=== PATIENT | male | born 1975 | race Caucasian/White ===

== ENCOUNTER 2023-01-31 21:05 | Emergency (ER) | payer MEDICARE ==
[~2023-01-31] VITALS: Ht 177.8 cm; Wt 111.6 kg
[2023-01-31 21:40] LABS: BASOPHILS ABSOLUTE AUTO 0.06 K/mm3 (0.00-0.23); BASOPHILS PERCENT AUTO 1 % (0-2); EOSINOPHILS ABSOLUTE AUTO 0.08 K/mm3 (0.00-0.68); EOSINOPHILS PERCENT AUTO 1 % (0-6); Hematocrit 38.2 % (37.0-53.0); Hemoglobin 12.4 g/dL (13.5-17.5); IMMATURE GRAN ABSOLUTE AUTO 0.07 K/mm3 (0.00-0.10); IMMATURE GRAN PERCENT AUTO 1 % (0-1); LYMPHOCYTES ABSOLUTE AUTO 1.19 K/mm3 (0.84-5.20); LYMPHOCYTES PERCENT AUTO 10 % (21-46); MONOCYTES ABSOLUTE AUTO 1.36 K/mm3 (0.16-1.47); MONOCYTES PERCENT AUTO 11 % (4-13); Mean Corpuscular HGB 28.6 pg (26.0-34.0); Mean Corpuscular HGB Conc 32.5 g/dL (31.5-36.5); Mean Corpuscular Volume 88 fL (80-100); Mean Platelet Volume 9.8 fL (9.1-12.4); NEUTROPHILS ABSOLUTE AUTO 9.35 K/mm3 (1.96-9.15); NEUTROPHILS PERCENT AUTO 77 % (41-73); Platelet Count 190 K/mm3 (150-400); RDW Coefficient Variation 16.2 % (11.7-14.2); RDW Standard Deviation 50.9 fL (35.1-46.3); Red Blood Cell Count 4.34 M/mm3 (4.30-5.90); White Blood Cell Count 12.11 K/mm3 (4.00-11.30)
[2023-01-31 21:53] LABS: Albumin, Blood 3.6 g/dL (3.4-5.0); Albumin/Globulin Ratio 0.9 (0.8-1.8); Bilirubin, Total 1.6 mg/dL (0.1-1.0); Bun/Creatinine Ratio 13.9 (12.0-20.0); Calcium, Blood 8.6 mg/dL (8.5-10.1); Creatinine, Blood 1.87 mg/dL (0.60-1.20); Globulin, Blood 4.2 g/dL (2.2-4.0); Potassium, Blood 2.8 mmol/L (3.5-5.5); Total Protein, Blood 7.8 g/dL (6.4-8.2)
[2023-02-01 00:23] LABS: Potassium, Blood 2.4 mmol/L (3.5-5.5)
[2023-02-01] MEDS ORDERED: ONDA4ODT MM (01:29)
[2023-02-01 04:45] VITALS: BP 116/68
== END 2023-02-01 04:53 | disposition home or self-care (01) ==
LOC: ER 21:05
PROVIDERS: Physician Assistant
DX: E87.6 Hypokalemia (principal)
CPT/HCPCS: 80053; 83735; 84132; 85025; 93005; 93010; 96365; 96366; 96375; 99285-25; A9270; J2405; J3480; J7030; J7050

== ENCOUNTER 2023-02-08 10:42 | Emergency (ER) | payer MEDICARE ==
[~2023-02-08] VITALS: Ht 177.8 cm; Wt 108.9 kg
[~2023-02-08 10:42] MED LIST: ONDA4ODT MM
[2023-02-08 12:22] LABS: BASOPHILS ABSOLUTE AUTO 0.07 K/mm3 (0.00-0.23); BASOPHILS PERCENT AUTO 1 % (0-2); EOSINOPHILS ABSOLUTE AUTO 0.14 K/mm3 (0.00-0.68); EOSINOPHILS PERCENT AUTO 1 % (0-6); Hematocrit 36.7 % (37.0-53.0); Hemoglobin 12.2 g/dL (13.5-17.5); IMMATURE GRAN ABSOLUTE AUTO 0.14 K/mm3 (0.00-0.10); IMMATURE GRAN PERCENT AUTO 1 % (0-1); LYMPHOCYTES ABSOLUTE AUTO 0.83 K/mm3 (0.84-5.20); LYMPHOCYTES PERCENT AUTO 7 % (21-46); MONOCYTES ABSOLUTE AUTO 0.87 K/mm3 (0.16-1.47); MONOCYTES PERCENT AUTO 8 % (4-13); Mean Corpuscular HGB 28.8 pg (26.0-34.0); Mean Corpuscular HGB Conc 33.2 g/dL (31.5-36.5); Mean Corpuscular Volume 87 fL (80-100); NEUTROPHILS ABSOLUTE AUTO 9.13 K/mm3 (1.96-9.15); NEUTROPHILS PERCENT AUTO 82 % (41-73); Platelet Count 321 K/mm3 (150-400); RDW Coefficient Variation 15.9 % (11.7-14.2); RDW Standard Deviation 49.7 fL (35.1-46.3); Red Blood Cell Count 4.23 M/mm3 (4.30-5.90); White Blood Cell Count 11.18 K/mm3 (4.00-11.30)
[2023-02-08 12:53] LABS: Albumin, Blood 3.1 g/dL (3.4-5.0); Albumin/Globulin Ratio 0.7 (0.8-1.8); Bilirubin, Total 0.5 mg/dL (0.1-1.0); Bun/Creatinine Ratio 13.2 (12.0-20.0); Creatinine, Blood 1.82 mg/dL (0.60-1.20); Globulin, Blood 4.7 g/dL (2.2-4.0); Potassium, Blood 3.1 mmol/L (3.5-5.5); Total Protein, Blood 7.8 g/dL (6.4-8.2)
[2023-02-08 15:00] VITALS: BP 94/59
== END 2023-02-08 15:15 | disposition home or self-care (01) ==
LOC: ER 10:42
PROVIDERS: Emergency Medicine
DX: E87.6 Hypokalemia (principal); N17.9 Acute kidney failure, unspecified; H57.12 Ocular pain, left eye; I50.9 Heart failure, unspecified
CPT/HCPCS: 70450; 71045; 80053; 83735; 83880; 85025; 93005; 93010; 96365; 96366; 96375; 99284-25; A9270; J0780; J3480; J7030

== ENCOUNTER 2023-10-13 13:49 | Emergency (ER) | payer MEDICARE ==
[~2023-10-13] VITALS: Ht 177.8 cm; Wt 103.4 kg
[2023-10-13 14:40] LABS: BASOPHILS ABSOLUTE AUTO 0.06 K/mm3 (0.00-0.23); BASOPHILS PERCENT AUTO 1 % (0-2); EOSINOPHILS ABSOLUTE AUTO 0.16 K/mm3 (0.00-0.68); EOSINOPHILS PERCENT AUTO 1 % (0-6); Hematocrit 43.5 % (37.0-53.0); Hemoglobin 14.1 g/dL (13.5-17.5); IMMATURE GRAN ABSOLUTE AUTO 0.06 K/mm3 (0.00-0.10); IMMATURE GRAN PERCENT AUTO 1 % (0-1); LYMPHOCYTES ABSOLUTE AUTO 1.13 K/mm3 (0.84-5.20); LYMPHOCYTES PERCENT AUTO 10 % (21-46); MONOCYTES ABSOLUTE AUTO 0.98 K/mm3 (0.16-1.47); MONOCYTES PERCENT AUTO 9 % (4-13); Mean Corpuscular HGB 28.3 pg (26.0-34.0); Mean Corpuscular HGB Conc 32.4 g/dL (31.5-36.5); Mean Corpuscular Volume 87 fL (80-100); Mean Platelet Volume 9.9 fL (9.1-12.4); NEUTROPHILS ABSOLUTE AUTO 8.89 K/mm3 (1.96-9.15); NEUTROPHILS PERCENT AUTO 79 % (41-73); Platelet Count 188 K/mm3 (150-400); RDW Coefficient Variation 15.8 % (11.7-14.2); RDW Standard Deviation 50.4 fL (35.1-46.3); Red Blood Cell Count 4.98 M/mm3 (4.30-5.90); White Blood Cell Count 11.28 K/mm3 (4.00-11.30)
[2023-10-13 15:09] LABS: Albumin, Blood 4.3 g/dL (3.4-5.0); Albumin/Globulin Ratio 1.1 (0.8-1.8); Bilirubin, Total 0.9 mg/dL (0.1-1.0); Bun/Creatinine Ratio 15.9 (12.0-20.0); Calcium, Blood 8.7 mg/dL (8.5-10.1); Creatinine, Blood 1.51 mg/dL (0.60-1.20); Globulin, Blood 3.8 g/dL (2.2-4.0); Potassium, Blood 3.4 mmol/L (3.5-5.5); Total Protein, Blood 8.1 g/dL (6.4-8.2)
[2023-10-13 19:37] LABS: Influenza A, PCR NEGATIVE (NEGATIVE); Influenza B, PCR NEGATIVE (NEGATIVE); Resp Syncytial Virus, PCR NEGATIVE (NEGATIVE); SARS-Cov-2 (COVID-19) PCR, MMC NEGATIVE (NEGATIVE)
[2023-10-13 19:45] VITALS: BP 98/67
[2023-10-13] MEDS ORDERED: PROC5 PO (20:09)
== END 2023-10-13 20:18 | disposition home or self-care (01) ==
LOC: ER 13:49
PROVIDERS: Student in an Organized Health Care Education/Training Program
DX: R11.2 Nausea with vomiting, unspecified (principal); R10.13 Epigastric pain; Z88.0 Allergy status to penicillin
CPT/HCPCS: 0241U; 71046; 74177; 80053; 83690; 85025; 93005; 93010; 96361; 96374; 99284-25; A9270; J0780; J7030; Q9967

== ENCOUNTER 2024-04-04 11:36 | Inpatient (IN) | payer MEDICARE ==
[~2024-04-04] VITALS: Ht 177.8 cm; Wt 104.0 kg
[2024-04-04] VITALS (25 sets, daily range): BP systolic 86–123; BP diastolic 50–80
[~2024-04-04 11:36] MED LIST changes: +ACET325 PO; +ATOR20 PO; +Amiodarone HCl200 MG PO; +Aspir 8181 MG PO; +BACL10 PO; +BRINTELLIX10 MG PO; +Bisoprolol Fuma10 MG PO; +CEFTRIAXONE2 G7 IV; +Calcium Carbon500 MG PO; +DOCU100 PO; +ENOX100I SC; +FEBU40TA PO; +GABA300 PO; +JARDIANCE25 MG PO; +LIDO700A20 TOP; +MAGNESIUM OXID500 MG PO; +METF500 PO; +METO2.5 PO; +MIRALAX17 GM PO; +OMEP20ER PO; +OXYC5 PO; +POTCHL20ER PO; +PROC5 PO; +PROM25 PO; +SENN187 PO; +SILDENAFIL PO; +SPIR25 PO; +TORSEMIDE PO; +VISBIOME 112.51 EACH PO; +WARF2.5 PO; +WARF5 PO; +WARF7.5; +[UNRECOGNIZED DRUG - OTHER] PO
[2024-04-04 12:42] LABS: BASOPHILS ABSOLUTE AUTO 0.09 K/mm3 (0.00-0.23); BASOPHILS PERCENT AUTO 1 % (0-2); EOSINOPHILS ABSOLUTE AUTO 0.35 K/mm3 (0.00-0.68); EOSINOPHILS PERCENT AUTO 2 % (0-6); Hemoglobin 13.5 g/dL (13.5-17.5); IMMATURE GRAN PERCENT AUTO 1 % (0-1); LYMPHOCYTES ABSOLUTE AUTO 1.03 K/mm3 (0.84-5.20); LYMPHOCYTES PERCENT AUTO 6 % (21-46); MONOCYTES ABSOLUTE AUTO 1.59 K/mm3 (0.16-1.47); MONOCYTES PERCENT AUTO 9 % (4-13); Mean Corpuscular HGB 24.2 pg (26.0-34.0); Mean Corpuscular HGB Conc 31.4 g/dL (31.5-36.5); Mean Corpuscular Volume 77 fL (80-100); Mean Platelet Volume 10.6 fL (9.1-12.4); NEUTROPHILS ABSOLUTE AUTO 14.35 K/mm3 (1.96-9.15); NEUTROPHILS PERCENT AUTO 82 % (41-73); Platelet Count 284 K/mm3 (150-400); RDW Coefficient Variation 16.6 % (11.7-14.2); Red Blood Cell Count 5.57 M/mm3 (4.30-5.90); White Blood Cell Count 17.51 K/mm3 (4.00-11.30)
[2024-04-04 13:15] LABS: Albumin, Blood 3.9 g/dL (3.4-5.0); Albumin/Globulin Ratio 0.7 (0.8-1.8); Bun/Creatinine Ratio 28.7 (12.0-20.0); Calcium, Blood 9.3 mg/dL (8.5-10.1); Creatinine, Blood 2.09 mg/dL (0.60-1.20); Globulin, Blood 5.3 g/dL (2.2-4.0); Potassium, Blood 3.4 mmol/L (3.5-5.5); Total Protein, Blood 9.2 g/dL (6.4-8.2)
[2024-04-04] MEDS ORDERED: NS 1,000 ML IV SCH ×2 (14:05→15:30)
[2024-04-04] MEDS ORDERED: Insulin Regular 100 Unit/ML 1ML Dose SC ONE (14:30)
[2024-04-04 14:37] LABS: Base Excess Venous 15.7 mmol/L; Bicarbonate Venous 37.4 mmol/L (24.0-30.0); PCO2 Venous 50.2 mmHg (38-42); pH Blood Venous 7.49 (7.34-7.37)
[2024-04-04 15:03] LABS: Source, Urine Clean Catch
[2024-04-04 15:07] LABS: Appearance, Urine Clear (Clear); Bilirubin, Urine Neg (Neg); Blood, Urine Neg (Neg); Glucose Qualitative, Urine 4+ (Neg); Ketones, Urine Neg (Neg); Leukocyte Esterase, Urine Neg (Neg); Nitrite, Urine Neg (Neg); Protein, Urine Neg (Neg); Urobilinogen, Urine NORM (Normal)
[2024-04-04] MEDS ORDERED: Acetaminophen 325 MG TABLET PO PRN (15:25)
[2024-04-04] MEDS ORDERED: Ondansetron HCl 2 MG / ML 2ML Vial IV PRN (15:25)
[2024-04-04 15:30] LABS: Color, Urine Pale Yellow (P-Yellow)
[2024-04-04] MEDS ORDERED: Potassium Chloride 40 MEQ in NS 250 ML IV ONE (15:35)
[2024-04-04] MEDS ORDERED: CefTRIAXone Sodium 1,000 MG in NS 100 ML IV SCH (15:45)
[2024-04-04] MEDS ORDERED: Insulin Human Lispro 100 Units/ML 3ML Syringe SC SCH (16:00)
[2024-04-04] MEDS ORDERED: Azithromycin 500 MG in NS 250 ML IV SCH (16:00)
[2024-04-04] MEDS ORDERED: Benzonatate 100 MG Cap PO PRN (16:05)
--- NOTE | 2024-04-04 16:52 | NUR ---
ARRIVAL TO ICU/SUMMARY PT BROUGHT TO ICU 15 AT THIS TIME. PT ABLE TO STAND AND TRANSFER SELF TO ICU BED. HE IS A&OX4 BUT REPORTS FEELING FATIGUED. HE IS ON 2L NC. LUNGS ARE CLEAR THROUGHOUT. HE HAS AN A/V PACER/DEFIBRILLATOR. RATE IS 60 MONITOR, BP STABLE WITH MAP >65. PT REPORTS WANTING FOOD, NPO AT THIS TIME. ORDER RECEIVED FOR CLEAR LIQUID PER HOSPITALIST. PT USED URINAL ONCE THIS SHIFT WITH PALE YELLOW OUTPUT. MED HISTORY OBTAINED FROM PT AND PT'S CAMMIE. SHE STS SHE IS DURABLE POWER OF INSPECTOR METAL CAN. BED IN LOW POSITION, CALL LIGHT WITHIN REACH.
[2024-04-04] MEDS ORDERED: NS 250 ML IV PRN (17:00)
[2024-04-04 17:02] LABS: International Normalized Ratio 3.3; Prothrombin Time Results 32.3 Sec (9.7-11.5)
[2024-04-04 17:23] LABS: Bun/Creatinine Ratio 26.9 (12.0-20.0); Calcium, Blood 9.6 mg/dL (8.5-10.1); Creatinine, Blood 2.16 mg/dL (0.60-1.20); Magnesium, Blood 2.9 mg/dL (1.6-2.4); Potassium, Blood 2.8 mmol/L (3.5-5.5)
[2024-04-04] MEDS ORDERED: NS KCl 20mEq 1,000 ML IV SCH (17:30)
[2024-04-04] MEDS ORDERED: BRINTELLIX10 MG PO (17:30)
[2024-04-04] MEDS ORDERED: ATOR20 PO (17:31)
[2024-04-04] MEDS ORDERED: Amiodarone HCl200 MG PO (17:31)
[2024-04-04] MEDS ORDERED: Bisoprolol Fuma10 MG PO (17:32)
[2024-04-04] MEDS ORDERED: GABA400 PO (17:33)
[2024-04-04] MEDS ORDERED: FEBU40TA PO (17:34)
[2024-04-04] MEDS ORDERED: TORS10 PO (17:35)
[2024-04-04] MEDS ORDERED: POTCHL20ER PO (17:37)
[2024-04-04] MEDS ORDERED: K-TAB ER20 ME1 PO (17:39)
[2024-04-04] MEDS ORDERED: TRAZ50 PO (17:40)
[2024-04-04] MEDS ORDERED: METF500 PO (17:40)
[2024-04-04] MEDS ORDERED: OMEP20ER PO (17:42)
[2024-04-04] MEDS ORDERED: JARDIANCE25 MG PO (17:43)
[2024-04-04] MEDS ORDERED: METO5 PO (17:43)
[2024-04-04] MEDS ORDERED: SILD25T (17:44)
[2024-04-04] MEDS ORDERED: PROM25 PO (17:45)
[2024-04-04] MEDS ORDERED: Coumadin7.5 MG PO (17:46)
[2024-04-04] MEDS ORDERED: ALDACTONE25 MG PO (17:47)
[2024-04-04] MEDS ORDERED: Potassium Chloride 20 MEQ TabCR PO ONE (18:05)
[2024-04-04] MEDS ORDERED: Warfarin Sodium 5 MG Tab PO ONE (18:20)
--- NOTE | 2024-04-04 19:00 | NUR ---
HOME MEDS HOME MED LIST UPDATED. PT AND SPOUSE EXPRESSED CONCERN REGARDING NOT RECEIVING BISOPROLOL DURING LAST HOSPITALIZATION. ORDER RECEIVED FROM HOSPITALIST FOR PT TO BE ABLE TO TAKE HIS HOME BISOPROLOL DURING ADMISSION AND BOTTLE SENT TO PHARMACY. SPOUSE EXPRESSES CONCERN REGARDING PT'S GABAPENTIN. SHE STS HE WAS STARTED AT 900MG DOSE AND IT WAS "TOO MUCH" AND SHE STILL FEELS LIKE THE DOSE IS TOO HIGH DUE TO DROWSINESS DESPITE IT BEING CHANGED TO 600MG. WARFARIN SCHEDULE IS 2.5MG SUNDAY, SUNDAY, SUNDAY AND 5MG SUNDAY, SUNDAY, SUNDAY, AND SUNDAY. PER PT INR GOAL IS 2.5-3.5. PHARMACY AWARE.
[2024-04-04] MEDS ORDERED: Promethazine HCl 25 MG Tab PO PRN (19:25)
[2024-04-04] MEDS ORDERED: Misc. Tablet PO SCH ×2 (20:31→20:40)
[2024-04-04] MEDS ORDERED: TraZODone HCl 50 MG Tab PO SCH (21:00)
[2024-04-04] MEDS ORDERED: Gabapentin 300 MG Cap PO SCH (21:00)
[2024-04-04] MEDS ORDERED: GuaiFENesin 600 MG TabCR PO SCH (21:00)
[2024-04-04 22:46] LABS: Bun/Creatinine Ratio 28.5 (12.0-20.0); Creatinine, Blood 1.72 mg/dL (0.60-1.20)
[2024-04-05] VITALS (32 sets, daily range): BP systolic 92–130; BP diastolic 57–79
[2024-04-05] MEDS ORDERED: Potassium Chloride 20 MEQ TabCR PO ONE (00:45)
[2024-04-05 03:44] LABS: BASOPHILS ABSOLUTE AUTO 0.15 K/mm3 (0.00-0.23); BASOPHILS PERCENT AUTO 1 % (0-2); EOSINOPHILS ABSOLUTE AUTO 0.78 K/mm3 (0.00-0.68); EOSINOPHILS PERCENT AUTO 6 % (0-6); Hematocrit 36.7 % (37.0-53.0); Hemoglobin 11.4 g/dL (13.5-17.5); IMMATURE GRAN ABSOLUTE AUTO 0.06 K/mm3 (0.00-0.10); IMMATURE GRAN PERCENT AUTO 0 % (0-1); LYMPHOCYTES ABSOLUTE AUTO 1.84 K/mm3 (0.84-5.20); LYMPHOCYTES PERCENT AUTO 13 % (21-46); MONOCYTES ABSOLUTE AUTO 1.38 K/mm3 (0.16-1.47); MONOCYTES PERCENT AUTO 10 % (4-13); Mean Corpuscular HGB 24.3 pg (26.0-34.0); Mean Corpuscular HGB Conc 31.1 g/dL (31.5-36.5); Mean Corpuscular Volume 78 fL (80-100); Mean Platelet Volume 9.7 fL (9.1-12.4); NEUTROPHILS ABSOLUTE AUTO 9.54 K/mm3 (1.96-9.15); NEUTROPHILS PERCENT AUTO 69 % (41-73); Platelet Count 233 K/mm3 (150-400); RDW Coefficient Variation 16.5 % (11.7-14.2); RDW Standard Deviation 46.4 fL (35.1-46.3); Red Blood Cell Count 4.69 M/mm3 (4.30-5.90); White Blood Cell Count 13.75 K/mm3 (4.00-11.30)
[2024-04-05 03:57] LABS: International Normalized Ratio 3.61; Prothrombin Time Results 35.1 Sec (9.7-11.5)
[2024-04-05 04:04] LABS: Albumin, Blood 3.1 g/dL (3.4-5.0); Albumin/Globulin Ratio 0.7 (0.8-1.8); Bilirubin, Total 0.7 mg/dL (0.1-1.0); Bun/Creatinine Ratio 28.8 (12.0-20.0); Calcium, Blood 8.4 mg/dL (8.5-10.1); Creatinine, Blood 1.6 mg/dL (0.60-1.20); Globulin, Blood 4.2 g/dL (2.2-4.0); Potassium, Blood 3.2 mmol/L (3.5-5.5); Total Protein, Blood 7.3 g/dL (6.4-8.2)
--- NOTE | 2024-04-05 05:45 | NUR ---
SHIFT SUMMARY ASSUMED CARE OF PT AT 1900. PT IS A/OX4. HEART SOUNDS REGULAR WITH A CLICK. PT PACED T/O THE NOC. LUNG SOUNDS HAVE CRACKELS T/O. ATTEMPTED TO TITRATE PT OFF 2L NC BUT PT SATURATIONS REMAINED FROM 90-87 AND WAS PLACED BACK ON WHEN SLEEPING. PT USED URINAL AT BEDSIDE. PT BECAME STRONGER T/O THE NOC AND STATED HE WAS FEELING BETTER. PT BLOOD PRESSURE REMAINED SOFT. PT WORRIED ABOUT NOT GETTING TORESEDMIDE TONIGHT. HOSPITALIST NOTIFIED OF TRENDING BP/MAPS AND PT CONCERNS. SAID TO MONITOR PT AFTER REVIEWING THE CHART.
[2024-04-05] MEDS ORDERED: Torsemide 20 MG TAB PO ONE (06:30)
[2024-04-05] MEDS ORDERED: Omeprazole 20 MG CapCR PO SCH (07:30)
[2024-04-05] MEDS ORDERED: Misc. Tablet PO SCH ×3 (09:00)
[2024-04-05] MEDS ORDERED: Allopurinol 300 MG Tab PO SCH (09:00)
[2024-04-05] MEDS ORDERED: Amiodarone HCl 200 MG Tab PO SCH (09:00)
[2024-04-05] MEDS ORDERED: Atorvastatin 10 MG Tab PO SCH (09:00)
[2024-04-05] MEDS ORDERED: Insulin Human Lispro 100 Units/ML 3ML Syringe SC SCH (11:30)
--- NOTE | 2024-04-05 14:29 | NUR ---
CARE NOTE PT HAS EXPRESSED CONCERNS REGARDING NOT TAKING HOME TORSAMIDE DOSE. THIS RN HAS RELAYED CONCERNS TO DR. GREER AND DR. GREER HAS BEEN TO BEDSIDE TO DISCUSS TORSAMIDE MEDICATION W/ PT. THIS RN SPOKE W/ DR. GREER AT APPROX. 1420 TO NOTIFY THAT THE PT IS NOW WANTING TO LEAVE AMA DUE TO NOT BEING ABLE TO HAVE HOME TORSAMIDE DOSE. HIS IS CURRENTLY AT BEDSIDE AND THEY ARE WILLING TO WAIT LEAVING AMA UNTIL THEY SPEAK W/ DR. GREER.
--- NOTE | 2024-04-05 16:56 | NUR ---
TRANSFER ASSUMED CARE AT 1500. PT SITTING UP IN CHAIR WAITING TO TALK TO DR. GREER ABOUT HIS MEDICATIONS. DR. GREER CAME AND TALKED WITH PT AND HE AGREED TO STAY FOR THE NIGHT WITHOUT CHANGING HIS TORSEMIDE DOSE. PT TO TRANSFER TO 363. REPORT GIVEN TO PLACIDO ROUSE. PT TRANSFERRED VIA WC WITH RN. PT'S HOME MED SENT UPSTAIRS WITH PT.
--- NOTE | 2024-04-05 17:15 | NUR ---
ASSUMED CARE: PT TRANSFERRED FROM ICU TO ROOM 363 VIA WHEEL CHAIR. REPORT FROM AGUEDA CUMMINS. CALL LIGHT IN REACH, S.O. AT BEDSIDE. DENIES NEEDS OR CONCERNS AT THIS TIME.
--- NOTE | 2024-04-05 18:10 | NUR ---
SHIFT SUMMARY: PT TRANSFERRED FROM ICU THIS SHIFT. POSSIBLE DC TOMORROW. S.O. AT BEDSIDE. EDUCATED ON DIETARY CHOICES DUE TO DIABETES AND DKA. NO FURTHER NEEDS OR CONCERNS AT THIS TIME.
[2024-04-05] MEDS ORDERED: Insulin Regular 100 UNIT/ML 10ML Vial SC ONE (20:25)
[2024-04-05] MEDS ORDERED: Lactobacil 2-S.Thermo-Bifido 1 1 Cap PO SCH (21:00)
[2024-04-05] MEDS ORDERED: Insulin Glargine-Yfgn 100 Unit/mL 3 ML SYR SC SCH (23:00)
[2024-04-05 23:19] LABS: Glucose, Blood 546 mg/dL (70-99)
--- NOTE | 2024-04-06 01:16 | NUR ---
PT HS CBG 414. PT ASYMPTOMATIC. HOSPITALIST NOTIFIED AND ORDER GIVEN FOR 10 UNITS REGULAR INSULIN TO BE GIVEN AND CBG RECHECKED IN 2 HOURS.
--- NOTE | 2024-04-06 01:17 | NUR ---
CBG CHECKED 2 HOURS AFTER 10 UNITS REGULAR INSULIN GIVEN AND CBG 546. PT ASYMPTOMATIC AND REPORTS THIS NUMBER IS FREQUENT. HOSPITALIST ON FLOOR NOTIFIED AND AND ORDER GIVEN TO GIVE 6 UNITS ADDITIONAL OF SHORT ACTING ALONG WITH 4 PER SLIDING SCALE FOR TOTAL OF 10 UNITS. ORDER ALSO GIVEN TO START 20 UNITS LONG ACTING NOW AND THEN HS. WILL RECHECK CBG IN 2 HOURS.
[2024-04-06 02:19] VITALS: BP 110/77
[2024-04-06 04:28] LABS: BASOPHILS ABSOLUTE AUTO 0.11 K/mm3 (0.00-0.23); BASOPHILS PERCENT AUTO 1 % (0-2); EOSINOPHILS ABSOLUTE AUTO 0.66 K/mm3 (0.00-0.68); EOSINOPHILS PERCENT AUTO 6 % (0-6); Hematocrit 37.5 % (37.0-53.0); Hemoglobin 11.9 g/dL (13.5-17.5); IMMATURE GRAN ABSOLUTE AUTO 0.07 K/mm3 (0.00-0.10); IMMATURE GRAN PERCENT AUTO 1 % (0-1); LYMPHOCYTES ABSOLUTE AUTO 1.53 K/mm3 (0.84-5.20); LYMPHOCYTES PERCENT AUTO 13 % (21-46); MONOCYTES ABSOLUTE AUTO 1.54 K/mm3 (0.16-1.47); MONOCYTES PERCENT AUTO 14 % (4-13); Mean Corpuscular HGB 24.3 pg (26.0-34.0); Mean Corpuscular HGB Conc 31.7 g/dL (31.5-36.5); Mean Corpuscular Volume 77 fL (80-100); Mean Platelet Volume 9.7 fL (9.1-12.4); NEUTROPHILS ABSOLUTE AUTO 7.49 K/mm3 (1.96-9.15); NEUTROPHILS PERCENT AUTO 66 % (41-73); Platelet Count 235 K/mm3 (150-400); RDW Coefficient Variation 16.5 % (11.7-14.2); RDW Standard Deviation 45.2 fL (35.1-46.3); Red Blood Cell Count 4.89 M/mm3 (4.30-5.90)
[2024-04-06 04:46] LABS: Bun/Creatinine Ratio 26.1 (12.0-20.0); Calcium, Blood 8.7 mg/dL (8.5-10.1); Creatinine, Blood 1.42 mg/dL (0.60-1.20); Potassium, Blood 2.5 mmol/L (3.5-5.5)
[2024-04-06 04:51] LABS: Prothrombin Time Results 42.3 Sec (9.7-11.5)
[2024-04-06 04:54] LABS: International Normalized Ratio 4.41
[2024-04-06] MEDS ORDERED: Potassium Chloride 20 MEQ TabCR PO SCH (05:05)
--- NOTE | 2024-04-06 06:02 | NUR ---
SHIFT SUMMARY NOC PT A/O X 4. PLEASANT AND COOPERATIVE WITH CARE. VSS. PT HS CBG 414 AND HOSPITALIST ORDERED 10 UNITS R INSULIN, PT INSISTED ON EATING MEAL STILL. UPON RECHECK 2 HOURS LATER CBG 546 AND HOSPITALIST ON THE FLOOR ORDERED AN ADDITIONAL 6 UNITS ON TOP OF SLIDING SCALE COVERAGE OF SHORT ACTING FOR 10 TOTAL UNITS, ALSO LONG ACTING INSULIN OF 20 UNITS STARTED TONIGHT FOR BEDTIME. WHEN RECHECKED 2 HOURS LATER CBG 209 AND AM SERUM GLUCOSE 174. PT POTASSIUM 2.5 IN AM AND Q4H X 3 DOSES OF KCL PO ORDERED (MUST DISOLVE POTASSIUM IN WATER BECAUSE IT IS DIFFICULT FOR PT TO SWALLOW THE PILLS EVEN WHEN CUT IN HALF). PT EXPECTED TO DISCHARGE HOME TODAY. PT CURRENTLY RESTING WITH BED IN LOWEST POSITION, AND CALL LIGHT WITHIN REACH.
[2024-04-06 08:02] VITALS: BP 134/93
[2024-04-06 08:03] LABS: Magnesium, Blood 2.5 mg/dL (1.6-2.4); Phosphorus, Blood 3.6 mg/dL (2.5-4.9)
[2024-04-06] MEDS ORDERED: Metolazone 2.5 MG Tab PO SCH (09:00)
[2024-04-06] MEDS ORDERED: Spironolactone 12.5 MG TAB PO SCH (09:00)
[2024-04-06] MEDS ORDERED: Torsemide 20 MG TAB PO SCH (09:00)
[2024-04-06] MEDS ORDERED: Potassium Chloride 40 MEQ in NS 250 ML IV ONE (09:15)
[2024-04-06] MEDS ORDERED: CEFU500T30 PO (13:16)
[2024-04-06] MEDS ORDERED: VISBIOME 112.51 EACH PO (13:16)
[2024-04-06] MEDS ORDERED: GUAI600T33 PO (13:16)
[2024-04-06 15:37] VITALS: BP 107/68
--- NOTE | 2024-04-06 16:32 | NUR ---
PT C/O POTASSIUM BURNING; 250mL BAG NS HUNG TO RUN CONCURRENTLY. PT C/O "TAKING TOO LONG"; LET HIM KNOW I WAS UNABLE TO INCREASE SPEED, BUT DID HANG BAG AT DIFFERENT LEVELS AND K+ HEAVEN UP INTO NS BAG. LET PT KNOW IT WOULD STILL LIKELY BE ANOTHER 4 HOURS UNTIL K+ COMPLETE D/T DILUTION. PT WANTING TO LEAVE SOON. REQUESTED K+ LEVEL BE DRAWN TO SEE HOW FAR IT'S COME UP. OK PER DR. GREER. LAB NOTIFIED.
--- NOTE | 2024-04-06 17:34 | NUR ---
DR. GREER NOTIFIED PT CBG WAS 399 AND WILL GET 15 UNITS OF HUMALOG. POTASSIUM LEVEL IS 3.2. PER DR. GREER GIVE 15 UNITS HUMALOG, NO ADDITIONAL INSULIN AND POTASSIUM 40 MEQ PO NOW. ORDERS PROCESSED.
[2024-04-06] MEDS ORDERED: Potassium Chloride 20 MEQ TabCR PO ONE (17:40)
--- NOTE | 2024-04-06 18:22 | NUR ---
DISCHARGE/SHIFT SUMMARY: A&Ox4. PLEASANT AND COOPERATIVE WITH CARE. CALLS APPROPRIATELY AND IS ABLE TO ADVOCATE NEEDS EFFECTIVELY. AMBULATES INDEPENDENTLY. CONTINENT/CONTINENT WITH BATHROOM AND URINAL USE. MEDS WHOLE WITH FLUIDS WITHOUT DIFFICULTY. NO TELE. PAIN WNL. K+ AND INSULIN ADMINISTERED. IV x2 REMOVED. INSTRUCTIONS TO FOLLOW-UP WITH PCP WITHIN ONE WEEK. PATIENT ESCORTED FROM FLOOR BY WITH ALL BELONGINGS AND DISCHARGE PACKET @ 1822 VIA WHEELCHAIR BY NO SWENSON. TRANSPORT POV PROVIDED BY .
--- NOTE | 2024-04-06 22:24 | NUR ---
REVIEWED PT'S INFORMATION R/T PHONE CALL WITH QUESTIONS ABOUT DISCHARGE MEDICATIONS
== END 2024-04-06 18:26 | disposition home or self-care (01) | DRG 871 ==
LOC: ER 11:36 → ICUE 16:12 → MEDS 04-05 17:05
PROVIDERS: Family Medicine; Physician Assistant; ADMIT Internal Medicine
DX: A41.9 Sepsis, unspecified organism (principal); E11.10 Type 2 diabetes mellitus with ketoacidosis without coma; J18.9 Pneumonia, unspecified organism; N17.9 Acute kidney failure, unspecified; E87.1 Hypo-osmolality and hyponatremia; I48.20 Chronic atrial fibrillation, unspecified; I50.32 Chronic diastolic (congestive) heart failure; I13.0 Hypertensive heart and chronic kidney disease with heart failure and stage 1 through stage 4 chronic kidney disease, or unspecified chronic kidney disease; I42.1 Obstructive hypertrophic cardiomyopathy; N18.30 Chronic kidney disease, stage 3 unspecified; E87.6 Hypokalemia; E11.40 Type 2 diabetes mellitus with diabetic neuropathy, unspecified; F32.A Depression, unspecified; G47.00 Insomnia, unspecified; F17.210 Nicotine dependence, cigarettes, uncomplicated; M10.9 Gout, unspecified; E78.5 Hyperlipidemia, unspecified; F12.90 Cannabis use, unspecified, uncomplicated; Z98.890 Other specified postprocedural states; Z79.01 Long term (current) use of anticoagulants; Z95.2 Presence of prosthetic heart valve; Z95.810 Presence of automatic (implantable) cardiac defibrillator; Z90.49 Acquired absence of other specified parts of digestive tract; Z88.0 Allergy status to penicillin; Z88.8 Allergy status to other drugs, medicaments and biological substances; Z79.82 Long term (current) use of aspirin; Z79.899 Other long term (current) drug therapy; Z79.4 Long term (current) use of insulin; Z79.84 Long term (current) use of oral hypoglycemic drugs; Z79.891 Long term (current) use of opiate analgesic
CPT/HCPCS: 36415; 71046; 80048; 80053; 81003; 82803; 82947; 83605; 83690; 83735; 83880; 84100; 84132; 84145; 84484; 85025; 85610; 87070; 87205; 93005; 93010; 96360; 99285-25; A9270; J0456; J0696; J1815; J3480; J7030; J7050

== ENCOUNTER 2024-09-13 13:46 | Emergency (ER) | payer MEDICARE ==
[~2024-09-13] VITALS: Ht 177.8 cm; Wt 108.9 kg
[~2024-09-13 13:46] MED LIST changes: +ALDACTONE25 MG PO; +CEFU500T30 PO; +Coumadin7.5 MG PO; +GABA400 PO; +GUAI600T33 PO; +K-TAB ER20 ME1 PO; +METO5 PO; +SILD25T; +TORS10 PO; +TRAZ50 PO
[2024-09-13 14:41] LABS: BASOPHILS ABSOLUTE AUTO 0.04 K/mm3 (0.00-0.23); BASOPHILS PERCENT AUTO 1 % (0-2); EOSINOPHILS ABSOLUTE AUTO 0.23 K/mm3 (0.00-0.68); EOSINOPHILS PERCENT AUTO 3 % (0-6); Hematocrit 37.9 % (37.0-53.0); Hemoglobin 11.4 g/dL (13.5-17.5); IMMATURE GRAN ABSOLUTE AUTO 0.05 K/mm3 (0.00-0.10); IMMATURE GRAN PERCENT AUTO 1 % (0-1); LYMPHOCYTES ABSOLUTE AUTO 0.99 K/mm3 (0.84-5.20); LYMPHOCYTES PERCENT AUTO 13 % (21-46); MONOCYTES ABSOLUTE AUTO 0.62 K/mm3 (0.16-1.47); MONOCYTES PERCENT AUTO 8 % (4-13); Mean Corpuscular HGB 24.4 pg (26.0-34.0); Mean Corpuscular HGB Conc 30.1 g/dL (31.5-36.5); Mean Corpuscular Volume 81 fL (80-100); Mean Platelet Volume 9.6 fL (9.1-12.4); NEUTROPHILS ABSOLUTE AUTO 5.94 K/mm3 (1.96-9.15); NEUTROPHILS PERCENT AUTO 76 % (41-73); NRBC ABSOLUTE 0.03 K/mm3 (0.00-0.02); NRBC Auto 0.4 /100 WBC (0.0-0.2); Platelet Count 182 K/mm3 (150-400); RDW Coefficient Variation 19.1 % (11.7-14.2); RDW Standard Deviation 56.8 fL (35.1-46.3); Red Blood Cell Count 4.67 M/mm3 (4.30-5.90); White Blood Cell Count 7.87 K/mm3 (4.00-11.30)
[2024-09-13 15:04] LABS: Albumin, Blood 3.7 g/dL (3.4-5.0); Albumin/Globulin Ratio 0.9 (0.8-1.8); Bilirubin, Total 0.6 mg/dL (0.1-1.0); Bun/Creatinine Ratio 14.2 (12.0-20.0); Calcium, Blood 8.3 mg/dL (8.5-10.1); Creatinine, Blood 1.48 mg/dL (0.60-1.20); Globulin, Blood 3.9 g/dL (2.2-4.0); Potassium, Blood 3.6 mmol/L (3.5-5.5); Total Protein, Blood 7.6 g/dL (6.4-8.2)
[2024-09-13 15:45] LABS: International Normalized Ratio 3.33; Prothrombin Time Results 32.6 Sec (9.7-11.5)
[2024-09-13 17:25] VITALS: BP 131/94
== END 2024-09-13 17:30 | disposition home or self-care (01) ==
LOC: ER 13:46
PROVIDERS: Physician Assistant; Student in an Organized Health Care Education/Training Program
DX: M79.81 Nontraumatic hematoma of soft tissue (principal); E11.22 Type 2 diabetes mellitus with diabetic chronic kidney disease; N18.30 Chronic kidney disease, stage 3 unspecified; E11.40 Type 2 diabetes mellitus with diabetic neuropathy, unspecified; G47.00 Insomnia, unspecified; Z79.01 Long term (current) use of anticoagulants; Z79.899 Other long term (current) drug therapy; Z88.0 Allergy status to penicillin; Z91.030 Bee allergy status
CPT/HCPCS: 73201; 80053; 85025; 85610; 85730; 99283-25; Q9967